=== PATIENT | female | born 1960 | race Caucasian/White ===

== ENCOUNTER 2023-01-05 16:30 | Outpatient (CLI) | payer BC, SELFPAY | END 2023-01-05 16:31 | disposition home or self-care (01) | LOC: LKVREF 16:31 | PROVIDERS: PCP Physician Assistant Surgical; Visit Provider Physician Assistant Surgical | DX: S61.451A Open bite of right hand, initial encounter (principal); W54.0XXA Bitten by dog, initial encounter | CPT/HCPCS: 87070 ==

== ENCOUNTER 2023-09-17 07:30 | Outpatient (RCR) | payer BC, SELFPAY ==
--- NOTE | 2023-01-22 16:00 | OT.OPOE ---
OT Outpatient Ortho Eval OT Outpatient Ortho Eval* Start: 01/22/23 11:51 Freq: Status: Active Protocol: Document 01/22/23 11:57 YOLANDA (Rec: 01/22/23 15:58 YOLANDA [id number]) E-signed By Christa Leiva OTR/L, CANDELARIAT OT OP Ortho Eval Details Complexity Complexity Medium Insurance Information Insurance Information Blue [employer] Outpatient History/Precautions Current Condition/Medical Diagnosis Referring Provider Kimmy Keating PA-C Treatment Diagnosis Stiffness of R hand, M25.641 & Pain in R fingers M79.644 Date of Onset DOI: 12/28/22 Other Precautions From provider visit note: In regards to wound care, Torie will continue to cleanse her wound daily with Anasept and cover with a bandage. May continue to do Epson salt soaks every other day. 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 Torie's right hand wound has improved and continues to decrease in size, however her surrounding soft tissue remains slightly erythematous and mildly swollen. Torie explains her hand feels tight. She is unable to make a fist with her digits touching palm of her hand. Torie has now completed 3 weeks of Augmentin . Pain Assessment Pain Present Pain Present Pain Reported Location Right Hand Description Tightness,Heaviness Intensity 4 Goniometric Comments Goniometric Comments Goniometric Comments R hand little finger MCP 60 degrees, PIP 85 degrees, DIP 75 degrees ring finger MCP 55 degrees, PIP 78 degrees, DIP 62 degrees middle finger MCP 70 degrees, PIP 90 degrees DIP 55 degrees index finger thumb MCP 87 degrees, PIP 95 degrees, DIP 50 degrees thumb IP 85 degrees and 30 degrees at the [facility] Hand Pinch/Supervisor Wood Room Strength Hand Left Supervisor Wood Room Strength Position 1 (lbs) 60 Supervisor Wood Room Strength Position 2 (lbs) 42 Lateral Pinch Strength (lbs) 15 Three Point Pinch (lbs) 12 Tip Pinch Strength (lbs) 10 Right Supervisor Wood Room Strength Position 1 (lbs) 18 Supervisor Wood Room Strength Position 2 (lbs) 25 Lateral Pinch Strength (lbs) 16 Three Point Pinch (lbs) 13 Tip Pinch Strength (lbs) 13 OT Objective Data Hand Hand Dominance Right Skin/Wounds/Edema Comments Dorsal hand erythema and swelling remains relatively unchanged from previous week ( per patient report). She has now completed 3 weeks of oral Augmentin. Additional Information Objective Additional Information Right hand exam: C shaped wound present over dorsum of right hand, measuring approx. 2 cm x 1 cm. Wound is full thickness ( epidermis, dermis and subcutaneous tissue) without exposed tendons/bones. Eschar covering the wound. Area of slough has resolved. No drainage present. No periwound maceration. Soft tissue surrounding dorsal hand wound is erythematous and nontender to palpation. Minimal swelling present right dorsum hand and digits (index , long, ring and small). Swelling and erythema is unchanged from previous visit. No fluctuance nor induration palpated. No erythematous streaking. Right ring finger is mildly swollen near MCP joint and nonerythematous. No open wounds. Nontender over flexor tendon sheath. Also unable to make fist, digits do not make contact with palmar surface. CMS intact with 2+ radial pulse. [place], warm digits with brisk capillary refill. OT Problems Problems Problems Decreased Strength,Decreased Range of Motion,Pain,Lifting, Gripping,Pinching Problems Comments Patient had an MRI Thursday the at [facility] in [place]. Results: partial tearing of the extensor tendon of the fourth digit at the level of the fourth MCP joint as seen on sagittal series. Collateral ligamentous structures of the hand appear intact. No evidence of fracture. Imaged flexor tendons of the hand appear intact. No flexor tendon bowstringing identified . Other Problems Writing,Opening Containers, Dressing,Computer,Fasteners Patient Potential Good Assessment Assessment Assessment Patient is a pleasant, R hand dominant, 62 year-old female that presents with right hand pain post dog bite. DOI: 12/28. Patient attempted to break up a dog fight and was subsequently bitten on her dorsum of her right hand. She was seen at [facility] where she was prescribed Augmentin x 7 days. She had dorsum right hand redness, swelling and pain and also right ring finger pain and swelling. Initially, had fever , chills and erythematous streaking proximally up her forearm, but this resolved after the initiation of Augmentin which has seen been completed. Unable to make fist due to swelling and pain. Occupational Therapy Treatment Plan - OP Potential Rehabilitation Potential Good Set Goals Goals Set with Patient Yes Goals Goals 1. Patient will increase AROM of the R hand Index finger 2. Patient will increase AROM of the R hand middle finger 3. Patient will increase AROM of the R hand ring finger 4. Patient will increase R hand hearing and speech assistant strength 5. Patient will decrease reported pain levels in the R hand from 4/10 to less than 2/ 10 6. Patient will be able to make a full composite fist with the R (dominant) hand Target Date 8 weeks Treatment Plan Treatment Plan Evaluation,Edema Control,Joint Mobilization,Manual Therapy, Ultrasound,Wound Care/Scar Management,Therapeutic Exercise,Self Care/Home Management,Education Expected Frequency 1-2x Week Expected Duration 8-10 Weeks Home Program Home Program Home Program Initiated Home Program Specifics Patient was issued a SMALL size edema glove for the R hand (tipless) Showen extension tendon glides , encouraged to rasie her hand up above her head and do active muscle pumps/squeeze her hand and make a fist as much as possible, patient states that she was a stress ball at home that she squeezes. Therapist borrowed her the yellow powerweb to work on stretching of the R hand. Certification Certification I Certify That: Therapy Services Provided, Therapy Plan Established, Therapy Plan Reviewed Recertification Information Recertification Information Initial Certification Date 01/22/23 Recertification Due Date 04/22/23 Provider Signature Shows Agreement With POC & Medical Necessity Physician Comment/Change Comment or Changes Physician NPI Number #
--- NOTE | 2023-04-23 13:29 | OT.OPODN ---
OT Outpatient Ortho Daily Note OT Outpatient Ortho Daily Note* Start: 01/22/23 11:51 Freq: Status: Active Protocol: Document 04/21/23 10:14 YOLANDA (Rec: 04/21/23 12:26 NIDIAJoanna [id number]) E-signed By Christa Leiva OTR/L, CLT Type of Note Type of Note Type of Note Daily Note,Recert/Progress Note Visit Number 10 Comments 10th visit, Progress Note/ RECERT (needs to be signed by provider) Insurance Information Insurance Information Blue Cross/[facility] Outpatient History/Precautions Current Condition/Medical Diagnosis Referring Provider Kimmy Keating PA-C Treatment Diagnosis Stiffness of R hand, M25.641 & Pain in R fingers M79.644 Date of Onset DOI: 12/28/22 Other Precautions 04/16/23: Compression glove with splint over the top for the next 4 weeks. This is being worn while patient is at work Next f/u apt with Dr. Walden is Jun 18 2023. February [address] Constance Walden. (Hand specialist) From provider visit note: In regards to wound care, Torie will continue to cleanse her wound daily with Anasept and cover with a bandage. May continue to do Epson salt soaks every other day. 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 (This is being worn while patient is at work). Next f/u apt with Dr. Walden is Jun 18 2023. Pain Assessment Pain Present Pain Present No Pain Reported Location Right Hand Intensity 0 OT OP Daily Ortho Note/Assessment Therapeutic Exercise Therapeutic Exercise Minutes (minutes) 35 Therapeutic Exercise Comments Reviewed/performed digit extension, DIP and PIP blocking & tendon glides, encouraged her to continue with raising her hand up above her head and do active muscle pumps/squeeze her hand and make a fist as much as possible, Thera putty for electrical controls assembler squeezes, (using the red/ medium soft putty). Reminded patient to do wall circles with hand on wash cloth (non- friction) promoting wrist extension, ulnar and radial deviation. Also rocking/weight bearing on the table or counter with bilateral hands followed by using a thin Rubber band around the digits of the R hand to work lumbricals. Hand flat on the table for individual finger extension (lift, hold, longer, repeat x10). Patient to work on scar massage and edema massage at home daily (if possible 2-3x per day). Manual Therapy Manual Therapy Minutes (minutes) 12 Manual Therapy Comments Scar tissue massage to the dorsum of the R dominant hand to mobilize collagen fibers and reduce adhesions to improve fascial gliding and joint mobility along with stretch and hold techniques were applied to increase joint ranges. Instrument-assisted soft tissue mobilization ( IASTM) to treat/control edema, increase ROM for functional use and decrease pain for improved musculoskeletal function. Benefits of manual therapy & tissue mobilization includes alignment of fibroblasts and myofibroblasts, restoring gliding between layers of tissue, increase healing time & neurophysiological benefit due to rich proprioceptive input of fascia. Intent for manual therapy is to stimulate hyaluronic acid production and decrease viscosity, stimulate mechanoreceptors & restore gliding/sliding between layers. Total Occupational Therapy Time Occupational Therapy Minutes 47 Home Program Home Program Home Program Compliant Home Program Specifics R hand digit extension, DIP and PIP blocking & tendon glides, encouraged her to continue with raising her hand up above her head and do active muscle pumps/squeeze her hand and make a fist as much as possible, using light resistance putty. Goniometric Comments Goniometric Comments Goniometric Comments R hand little finger FLEXION: MCP 60 degrees, PIP 85 degrees, DIP 75 degrees ring finger MCP 10-80 degrees, PIP 20-80 degrees, DIP 10-75 degrees middle finger FLEXION MCP 70 degrees, PIP 90 degrees DIP 55 degrees index finger thumb FLEXION MCP 87 degrees, PIP 95 degrees, DIP 50 degrees thumb FLEION IP 85 degrees and 30 degrees at the [facility] Hand Pinch/Waiter/Waitress Captain Strength Hand Left Waiter/Waitress Captain Strength Position 1 (lbs) 60 Waiter/Waitress Captain Strength Position 2 (lbs) 42 Lateral Pinch Strength (lbs) 15 Three Point Pinch (lbs) 12 Tip Pinch Strength (lbs) 10 Right Waiter/Waitress Captain Strength Position 1 (lbs) 38 Waiter/Waitress Captain Strength Position 2 (lbs) 38 Lateral Pinch Strength (lbs) 16 Three Point Pinch (lbs) 13 Tip Pinch Strength (lbs) 13 OT Objective Data Hand Hand Dominance Right Sensation Sensation Assessment Summary Comments Soft tissue surrounding dorsal hand wound is erythematous and nontender to palpation. Minimal swelling present right dorsum hand and digits (index , long, ring and small). Swelling and erythema is unchanged from previous visit. OT Problems Problems Problems Decreased Strength,Decreased Range of Motion,Pain,Lifting, Gripping,Pinching Problems Comments Patient had an MRI Thursday the at [facility] in [place]. Results: partial tearing of the extensor tendon of the fourth digit at the level of the fourth MCP joint as seen on sagittal series. Collateral ligamentous structures of the hand appear intact. No evidence of fracture. Imaged flexor tendons of the hand appear intact. No flexor tendon bowstringing identified . Other Problems Writing,Opening Containers, Dressing,Computer,Fasteners Patient Potential Good Assessment Assessment Assessment Patient's next apt with the hand specialist is the , will continue visits 1x/week until this apt and see if any recommendations change. Re- tested electrical controls assembler strengths 03/31/23; R hand went from 18 lbs to 38 lbs today. Patient is a pleasant, R hand dominant, 62 year-old female that presents with right hand pain post dog bite. DOI: 12/28. Patient attempted to break up a dog fight and was subsequently bitten on her dorsum of her right hand. She was seen at [facility] where she was prescribed Augmentin x 7 days. She had dorsum right hand redness, swelling and pain and also right ring finger pain and swelling. Initially, had fever , chills and erythematous streaking proximally up her forearm, but this resolved after the initiation of Augmentin which has seen been completed. Unable to make fist due to swelling and pain. Occupational Therapy Treatment Plan - OP Potential Rehabilitation Potential Good Set Goals Goals Set with Patient Yes Goals Goals 1. Patient will increase AROM of the R hand Index finger. - Progressing, Continue 2. Patient will increase AROM of the R hand middle finger. Progressing, Continue 3. Patient will increase AROM of the R hand ring finger. - Progressing, Continue 4. Patient will increase R hand electrical controls assembler strength. Progressing, Continue 5. Patient will decrease reported pain levels in the R hand from 4/10 to less than 2/ 10. GOAL MET 03/05/23 6. Patient will be able to make a full composite fist with the R (dominant) hand. GOAL MET 03/05/23 Target Date 8 weeks Treatment Plan Treatment Plan Evaluation,Edema Control,Joint Mobilization,Manual Therapy, Ultrasound,Wound Care/Scar Management,Therapeutic Exercise,Self Care/Home Management,Education Expected Frequency 1-2x Week Expected Duration 8-10 Weeks Occupational Therapy Billing Units Treatment Minutes Timed Treatment Minutes 47 Total Treatment Minutes 47 Billing Units Manual Therapy 1 Therapeutic Exercise 2 Recertification Information Recertification Information Initial Certification Date 01/22/23 Recertification Start Date 07/23/23 Recertification Due Date 04/22/23 Reasons to Continue Skilled Therapy Patient is progressing nicely with edema softening allowing for increased AROM of all digits Waiter/Waitress Captain and pinch strengths have all increased from SOC. Rehabilitation Potential Excellent Click To Default 'Per treatment plan' Per treatment plan Continued Plan of Care and Interventions Per treatment plan Provider Signature Shows Agreement With POC & Medical Necessity Physician Comment/Change Comment or Changes Physician NPI Number #
--- NOTE | 2023-07-28 10:29 | OT.OPODN ---
OT Outpatient Ortho Daily Note OT Outpatient Ortho Daily Note* Start: 01/22/23 11:51 Freq: Status: Active Protocol: Document 07/28/23 08:28 YOLANDA (Rec: 07/28/23 10:16 [email or web address] [id number]) E-signed By Christa Leiva OTR/L, CLT Type of Note Type of Note Type of Note Daily Note,Recert/Progress Note Visit Number [id number] Comments RECERT completed on 07/28/23 Insurance Information Insurance Information [facility] Outpatient History/Precautions Current Condition/Medical Diagnosis Referring Provider Kimmy Keating PA-C Medical Diagnoses Cellulitis of right upper limb (ICD-10) Dog bite of right hand (Acute) DOI: 12/28/22-Open bite of right hand, initial encounter; Bitten by dog, initial encounter Treatment Diagnosis Stiffness of R hand, M25.641 & Pain in R fingers M79.644 Date of Onset 12/28/22 Other Precautions Patient no longer has any precautions. 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 Pain Assessment Pain Pain No OT OP Daily Ortho Note/Assessment Therapeutic Exercise Therapeutic Exercise Minutes (minutes) 20 Therapeutic Exercise Comments *Exercises done on all digits of the R (dominant hand minus the thumb) Access Code: [email or web address] URL: [email or web address] Date: 07/28/2023 Prepared by: Christa Leiva Exercises - Resisted Finger Extension and Thumb Abduction - 1 x daily - 7 x weekly - 3 sets - 10 reps - Seated Finger Composite Flexion Stretch - 1 x daily - 7 x weekly - 3 sets - 10 reps - Seated Finger DIP Flexion AROM with Blocking - 1 x daily - 7 x weekly - 3 sets - 10 reps - Seated Single Finger Extension - 1 x daily - 7 x weekly - 3 sets - 10 reps - Seated Digit Tendon Gliding - 1 x daily - 7 x weekly - 3 sets - 10 reps Manual Therapy Manual Therapy Minutes (minutes) 16 Manual Therapy Comments Scar tissue massage to the dorsum of the R dominant hand to mobilize collagen fibers and reduce adhesions to improve fascial gliding and joint mobility along with stretch and hold techniques were applied to increase joint ranges. Instrument-assisted soft tissue mobilization ( IASTM) to treat/control edema, increase ROM for functional use and decrease pain for improved musculoskeletal function. Benefits of manual therapy & tissue mobilization includes alignment of fibroblasts and myofibroblasts, restoring gliding between layers of tissue, increase healing time & neurophysiological benefit due to rich proprioceptive input of fascia. Intent for manual therapy is to stimulate hyaluronic acid production and decrease viscosity, stimulate mechanoreceptors & restore gliding/sliding between layers. Edema is less than SOC, but fluid around the digits ( joints of the R hand) remain firm, still larger than the L (non-effected hand). Ultrasound Ultrasound Minutes (minutes) 9 Ultrasound Location & Joint Position 3.3 superficial continuous heating for the dorsum of the R hand prior to manual therapy to prepare tissue for stretch /pull and soft tissue mobs. Ultrasound Frequency & Mode 3 MHz Continuous Intensity (w/cm2) 1.5 Total Occupational Therapy Time Occupational Therapy Minutes 45 Home Program Home Program Home Program Compliant Home Program Specifics R hand digit extension, DIP and PIP blocking & tendon glides, encouraged her to continue with raising her hand up above her head and do active muscle pumps/squeeze her hand and make a fist as much as possible, using light resistance putty. Goniometric Comments Goniometric Comments Goniometric Comments R hand little finger FLEXION: MCP 80 degrees, PIP 89 degrees, DIP 82 degrees ring finger MCP 2-86 degrees, PIP 6-84 degrees, DIP 4-80 degrees middle finger FLEXION MCP 84 degrees, PIP 90 degrees DIP 68 degrees index finger thumb FLEXION MCP 90 degrees, PIP 95 degrees, DIP 67 degrees thumb FLEION IP 85 degrees and 30 degrees at the [facility] Hand Pinch/Loading And Unloading Supervisor Strength Hand Pinch/Loading And Unloading Supervisor Strength Hand Pinch/Loading And Unloading Supervisor Strength Left Hand,Right Hand Left Hand Loading And Unloading Supervisor Strength Position 1 in Elbow 60 Flexion (lbs) Loading And Unloading Supervisor Strength Position 2 in Elbow 55 Extension (lbs) Lateral Pinch Strength (lbs) 15 Three Point Pinch (lbs) 12 Tip Pinch Strength (lbs) 11 Right Hand Loading And Unloading Supervisor Strength Position 1 in Elbow 50 Flexion (lbs) Loading And Unloading Supervisor Strength Position 2 in Elbow 58 Extension (lbs) Lateral Pinch Strength (lbs) 18 Three Point Pinch (lbs) 15 Tip Pinch Strength (lbs) 13 Comments Comments from 38 lbs to 50lb on the L side in position 1 and in position 2 patient went from 38lbs to 58 lbs. Tested on 05/25 Pinches were 16, 13 and 13 lbs and today they increased up to 18, 15 and 13 lbs OT Objective Data Hand Hand Dominance Right Sensation Sensation Assessment Summary Comments Soft tissue surrounding dorsal hand wound is erythematous and nontender to palpation. Minimal swelling present right dorsum hand and digits (index , long, ring and small). Swelling and erythema is unchanged from previous visit. OT Problems Problems Problems Decreased Strength,Decreased Range of Motion,Pain,Lifting, Gripping,Pinching Problems Comments Patient had an MRI Thursday the at [facility] in [place]. Results: partial tearing of the extensor tendon of the fourth digit at the level of the fourth MCP joint as seen on sagittal series. Collateral ligamentous structures of the hand appear intact. No evidence of fracture. Imaged flexor tendons of the hand appear intact. No flexor tendon bowstringing identified . Other Problems Writing,Opening Containers, Dressing,Computer,Fasteners Patient Potential Good Assessment Assessment Assessment Re-tested quality assurance test program manager/pinch strengths 07/02/23 (was previously tested on 03/31/23). 5/6 goals in POC have been met Patient is a pleasant, R hand dominant, 62 year-old female that presents with right hand pain post dog bite. DOI: 12/28. Patient attempted to break up a dog fight and was subsequently bitten on her dorsum of her right hand. She was seen at [facility] where she was prescribed Augmentin x 7 days. She had dorsum right hand redness, swelling and pain and also right ring finger pain and swelling. Initially, had fever , chills and erythematous streaking proximally up her forearm, but this resolved after the initiation of Augmentin which has seen been completed. Unable to make fist due to swelling and pain. Occupational Therapy Treatment Plan - OP Potential Rehabilitation Potential Good Set Goals Goals Set with Patient Yes Goals Goals 1. Patient will increase AROM of the R hand Index finger. - GOAL MET 05/14/23 2. Patient will increase AROM of the R hand middle finger. - GOAL MET 05/14/23 3. Patient will increase AROM of the R hand ring finger. - progressing, continue 4. Patient will increase R hand quality assurance test program manager strength. GOAL MET 5. Patient will decrease reported pain levels in the R hand from 4/10 to less than 2/ 10. GOAL MET 03/05/23 6. Patient will be able to make a full composite fist with the R (dominant) hand. GOAL MET 03/05/23 Target Date 8 weeks Treatment Plan Treatment Plan Evaluation,Edema Control,Joint Mobilization,Manual Therapy, Ultrasound,Wound Care/Scar Management,Therapeutic Exercise,Self Care/Home Management,Education Expected Frequency 1-2x Week Expected Duration 8-10 Weeks Occupational Therapy Billing Units Treatment Minutes Timed Treatment Minutes 45 Total Treatment Minutes 45 Billing Units Manual Therapy 2 Ultrasound 1 Certification Statement Certification Statement I Certify That: Therapy Services Provided, Therapy Plan Established, Therapy Plan Reviewed Recertification Information Recertification Information Initial Certification Date 01/22/23 Recertification Start Date 07/28/23 Recertification Due Date 10/26/23 Reasons to Continue Skilled Therapy Patient continues to make progress with skilled therapy Rehabilitation Potential Excellent Click To Default 'Per treatment plan' Per treatment plan Continued Plan of Care and Interventions Per treatment plan Provider Signature Required Yes Provider Signature Shows Agreement With POC & Medical Necessity Physician NPI Number Write NPI# Here Physician Comment/Change Comment or Changes Physician Signature & Date Requested Please Sign/Date Here
== END 2023-09-17 14:51 | disposition home or self-care (01) ==
PROVIDERS: PCP Physician Assistant Surgical; Visit Provider Physician Assistant Surgical
DX: S61.451A Open bite of right hand, initial encounter (principal); Z51.89 Encounter for other specified aftercare
CPT/HCPCS: 97035; 97110; 97140; 97166; X5282

== ENCOUNTER 2023-10-01 10:47 | Outpatient (CLI) | payer BC, SELFPAY | END 2023-10-01 10:48 | disposition home or self-care (01) | PROVIDERS: PCP Nurse Practitioner Family; Visit Provider Nurse Practitioner Family | DX: Z00.00 Encounter for general adult medical examination without abnormal findings (principal); E78.5 Hyperlipidemia, unspecified; E03.9 Hypothyroidism, unspecified; I10 Essential (primary) hypertension | CPT/HCPCS: 80053; 80061; 84443 ==

== ENCOUNTER 2023-12-15 15:08 | Outpatient (CLI) | payer BC, SELFPAY ==
--- NOTE | 2023-12-15 15:20 | CRLHL7_ITS ---
For Patients: As a result of the Century Cures Act, medical imaging exams and procedure reports are released immediately into your electronic medical record. You may view this report before your referring provider. If you have questions, please contact your health care provider. BILATERAL SCREENING MAMMOGRAM WITH COMPUTER-AIDED DETECTION AND TOMOSYNTHESIS TECHNIQUE: CC and MLO views were obtained. These mammographic images have been obtained using full-field digital technique. These mammographic images were interpreted with the benefit of computer-aided detection. Breast Tomosynthesis was used in this interpretation. COMPARISON FILM: 01/14/23, 01/23/22,01/22/21. FINDINGS: There are scattered areas of fibroglandular density. IMPRESSION: There is no radiographic evidence for malignancy. ASSESSMENT: BI-RADS Category 1: Negative RECOMMENDATION: Routine screening mammogram in 1 year. A lay language report of this examination will be provided to the patient. Cholo Dockery M.D. Diagnostic Radiologist [email or web address] SP/Dictated by: Cholo Dockery MD @ 12/17/2023 10:16:00 AM (Electronically Signed)
== END 2023-12-15 15:09 | disposition home or self-care (01) ==
LOC: MAMMO 15:10
PROVIDERS: PCP Nurse Practitioner Family; Visit Provider Nurse Practitioner Family
DX: Z12.31 Encounter for screening mammogram for malignant neoplasm of breast (principal)
CPT/HCPCS: 77063; 77067

== ENCOUNTER 2024-04-01 09:47 | Outpatient (CLI) | payer BC, SELFPAY ==
[2024-04-01 14:04] LABS: Basophils Absolute Auto 0.03 K/uL (0.00-0.30); Basophils Percent Auto 0.5 % (0.0-3.0); Eosinophils Absolute Auto 0.12 K/uL (0.00-0.50); Eosinophils Percent Auto 2.1 % (0.0-7.0); Hematocrit 43.3 % (33.0-51.0); Hemoglobin* 13.8 gm/dL (12.0-16.0); Immature Granulocytes Abs Auto 0.01 K/uL (0.00-0.30); Immature Granulocytes Pct Auto 0.2 %; Lymphocytes Percent Auto 31.7 % (20-44); Mean Corpuscular HGB Conc 32 gm/dL (32-36); Mean Corpuscular Hemoglobin 30 pg (26-34); Mean Corpuscular Volume 94 fL (80-100); Monocytes Percent Auto 8.1 % (0.0-11.0); Neutrophils Absolute Auto 3.26 K/uL (1.7-7.0); Neutrophils Percent Auto 57.4 % (42.0-72.0); Platelet Count* 341 K/uL (140-440); RDW Coefficient of Variation % 14.2 % (11.5-15.5); Red Blood Count 4.62 m/uL (4.00-5.20); White Blood Count* 5.68 K/uL (4.50-11.00)
[2024-04-01 14:07] LABS: Slide Review Reflex No
[2024-04-01 14:11] LABS: Albumin* 4.6 g/dL (3.3-5.0); Chloride* 102 mmol/L (96-114); Potassium* 4.6 mmol/L (3.6-5.1); Sodium* 138 mmol/L (135-149)
[2024-04-01 14:14] LABS: Alanine Aminotransferase* 30 U/L (4-35); Alkaline Phosphatase* 85 U/L (40-150); Anion Gap 7 mEq/L (7-15); Aspartate Amino Transferase* 26 U/L (12-35); Bilirubin Direct* 0.2 mg/dL (0.0-0.5); Bilirubin Total* 0.4 mg/dL (0.1-1.5); Blood Urea Nitrogen* 18 mg/dL (7-30); Carbon Dioxide* 29 mmol/L (20-32); Creatinine* 0.8 mg/dL (0.5-1.5); Estimated Glomerular Filt Rate 82 ml/min; Glucose* 88 mg/dL (60-115); Total Protein* 6.8 g/dL (6.0-8.3)
[2024-04-01 14:15] LABS: Calcium* 9.7 mg/dL (8.4-10.6)
== END 2024-04-01 09:48 | disposition home or self-care (01) ==
LOC: NPINS 09:48
PROVIDERS: PCP Nurse Practitioner Family; Visit Provider Nurse Practitioner
DX: I82.90 Acute embolism and thrombosis of unspecified vein (principal)
CPT/HCPCS: 80053; 80061; 80076; 83704; 85025

== ENCOUNTER 2024-04-11 10:54 | Outpatient (CLI) | payer BC, SELFPAY | END 2024-04-11 10:55 | disposition home or self-care (01) | LOC: FRMREF 10:55 | PROVIDERS: PCP Nurse Practitioner Family; Visit Provider Family Medicine | DX: E03.9 Hypothyroidism, unspecified (principal) | CPT/HCPCS: 84443 ==